=== PATIENT | female | born 1985 | race Caucasian/White ===

== ENCOUNTER 2016-10-15 08:46 | Emergency (ER) | payer OTHER ==
[2016-10-15 09:33] LABS: BASO # 0.1 10_X3_uL (0.0-0.1); BASO % 0.7 % (0.1-1.2); EOS # 0.2 10_X3_uL (0.0-0.4); EOS % 2.1 % (0.7-5.8); GRAN # 7.3 10_X3_uL (1.6-6.1); GRAN % 65.3 % (34.0-71.1); HEMATOCRIT 41.6 % (34-45); HEMOGLOBIN 14.1 g/dL (11.2-15.7); LYMPH # 2.9 10_X3_uL (1.2-3.7); LYMPH % 25.3 % (19.3-51.7); MEAN CORPUSCULAR HEMOGLOBIN 32.3 pg (27.0-33.0); MEAN CORPUSCULAR HGB CONC 33.9 g/dL (32.0-36.0); MEAN CORPUSCULAR VOLUME 95.2 fL (79-95); MEAN PLATELET VOLUME 9.4 fl (7.5-11.5); MONO # 0.7 10_X3_uL (0.2-0.9); MONO % 6.6 % (4.7-12.5); PLATELET COUNT 343 x10_3/uL (182-369); RED BLOOD COUNT 4.37 x10_6/uL (3.9-5.2); RED CELL DISTRIBUTION WIDTH 13.4 % (11.7-14.4); WHITE BLOOD COUNT 11.3 x10_3/uL (4.0-10.0)
[2016-10-15 09:43] LABS: BLOOD UREA NITROGEN 7 mg/dL (7-18); CALCIUM 9.5 mg/dL (8.7-10.7); CARBON DIOXIDE 25 mmol/L (21-32); CREATININE 0.7 mg/dL (0.6-1.3); GLUCOSE,RANDOM 84 mg/dL (70-99); POTASSIUM 3.8 mmol/L (3.5-5.1); SODIUM 138 mmol/L (136-145)
== END 2016-10-15 10:27 | disposition left against medical advice (07) ==
LOC: ER 08:46
PROVIDERS: General Practice
DX: R07.9 Chest pain, unspecified (principal); G43.909 Migraine, unspecified, not intractable, without status migrainosus; G89.29 Other chronic pain; F41.9 Anxiety disorder, unspecified; F17.210 Nicotine dependence, cigarettes, uncomplicated; Z79.899 Other long term (current) drug therapy; Z79.1 Long term (current) use of non-steroidal anti-inflammatories (NSAID)
CPT/HCPCS: 36415; 70450; 71010; 80048; 85025; 85379; 93005; 96372; 96374; 96375; 99070; 99285-25; J2765